=== PATIENT | female | born 1980 | race African-American/Black ===

== ENCOUNTER 2021-05-07 12:06 | Emergency (ER) | payer OTHER ==
[~2021-05-07] VITALS: Ht 175.3 cm; Wt 128.4 kg
[2021-05-07 12:53] LABS: BASOPHIL 0.3 % (0-2); EOSINOPHIL 1.6 % (0-5); HCT 35.8 % (37.0-47.0); HGB 10.5 g/dl (12.5-16.0); LYMPHOCYTE 21.9 % (15-48); MCH 22.1 pg (25.0-31.0); MCHC 29.3 g/dL (32.0-36.0); MCV 75.4 fL (78.0-100.0); MONOCYTE 5.9 % (0-12); MPV 10.2 fL (6.0-9.5); NEUTROPHIL 69.9 % (41-80); NRBC 0; PLT 296 K/uL (150-400); RBC 4.75 M/uL (4.20-5.40); RDW 20.1 % (11.5-14.0)
[2021-05-07 12:59] LABS: BILIRUBIN 1+ mg/dL (NEGATIVE); BLOOD TRACE-INTACT Ery/uL (NEGATIVE); COLOR YELLOW (YELLOW); GLUCOSE (U) NORMAL (NORMAL); LEUKOCYTES NEGATIVE Leu/uL (NEGATIVE); NITRITE NEGATIVE (NEGATIVE); PROTEIN TRACE (LOW) mg/dL (NEGATIVE); SPECIFIC GRAVITY >=1.030 (1.001-1.030)
[2021-05-07 13:01] LABS: CLARITY HAZY (CLEAR)
[2021-05-07 13:10] LABS: URINARY RBC RARE
[2021-05-07 13:11] LABS: BACTERIA 2+
[2021-05-07 13:22] LABS: LACTIC ACID 1.4 mmol/L (0.4-1.9)
[2021-05-07 13:26] LABS: ALBUMIN 3.8 g/dL (3.4-5.0); BILIRUBIN - TOTAL 0.3 mg/dL (0.2-1.0); BUN/CREAT RATIO (CALC) 9.1 RATIO; CREATININE 0.66 mg/dL (0.51-0.95); GLOBULIN (CALCULATION) 4.6 g/dL; POTASSIUM 3.7 mmol/L (3.5-5.1); TOTAL PROTEIN 8.4 g/dL (6.4-8.2)
[2021-05-07 13:33] LABS: INR 1.1 (0.9-1.2); PROTHROMBIN TIME 13.6 SECONDS (11.8-13.4); PTT 29.2 SECONDS (24.4-34.7)
[2021-05-07 14:02] LABS: CORONAVIRUS 2019 SARS-COV-2 NEGATIVE (NEGATIVE); INFLUENZA A NAA NEGATIVE (NEGATIVE)
== END 2021-05-07 14:39 | disposition left against medical advice (07) ==
LOC: FER 12:06
PROVIDERS: Nurse Practitioner Family
DX: I26.99 Other pulmonary embolism without acute cor pulmonale (principal); I51.9 Heart disease, unspecified; I51.7 Cardiomegaly; R77.8 Other specified abnormalities of plasma proteins; F17.210 Nicotine dependence, cigarettes, uncomplicated; Z53.8 Procedure and treatment not carried out for other reasons; Z20.822 Contact with and (suspected) exposure to COVID-19
CPT/HCPCS: 36415; 71046; 71275; 80053; 81001; 83605; 83880; 84484; 85025; 85379; 85610; 85730; 87040; 93005; J1644; Q9967; U0002